=== PATIENT | female | born 1980 | race Caucasian/White ===

== ENCOUNTER 2022-03-26 20:48 | Emergency (ER) | payer OTHER | END 2022-03-26 23:26 | disposition left against medical advice (07) | LOC: CSHERS 20:48 | DX: Z53.21 Procedure and treatment not carried out due to patient leaving prior to being seen by health care provider (principal) ==

== ENCOUNTER 2022-03-28 14:51 | Emergency (ER) | payer OTHER ==
[2022-03-28] MEDS ORDERED: Ketorolac Tromethamine 30 MG/ML VIAL ONE ×2 (15:16→15:44)
[2022-03-28 15:32] LABS: #Basophils 0.1 10x3/uL (0.0-0.2); #Eosinphils 0.1 10x3/uL (0.0-0.5); #Monocytes 0.7 10x3/uL (0.0-1.1); #Neutrophils 11.2 10x3/uL (1.5-8.4); %Basophils 0.4 % (0.0-2.0); %Eosinophils 0.7 % (0.0-6.0); %Monocytes 4.9 % (0.0-10.0); %Neutrophils 75.7 % (40.0-75.0); Hemoglobin 14.4 g/dL (12.0-15.5); Mean Corpuscular Hemoglobin 27.9 pg (27.0-33.0); Mean Corpuscular Volume 84.5 fl (81.6-98.3); Mean Platelet Volume 10.2 fl (7.4-10.4); Platelet Count 352 10x3/uL (150-450); RBC Distribution Width 13.6 % (11.5-14.5); Red Blood Cell (RBC) Count 5.16 10x6/uL (3.90-5.03); White Blood Cell (WBC) Count 14.7 10x3/uL (3.5-10.5)
[2022-03-28 15:38] LABS: BHCG - Serum Negative (NEGATIVE); Pregs Control Background? CLEAR/WHITE (CLR/WHITE); Pregs Control Bar Appear? YES (CONTROL BAR)
[2022-03-28] MEDS ORDERED: Iopamidol 300 61% 100 ML VIAL FS ONE (15:48)
[2022-03-28 15:49] LABS: ALT (SGPT) 35 U/L (8-55); AST (SGOT) 25 U/L (5-34); Albumin 4.2 g/dL (3.5-5.0); Alkaline Phosphatase 99 U/L (40-110); Anion Gap 17 mmol/L (10-20); BUN (Urea Nitrogen) 13 mg/dL (7.0-18.7); Bilirubin, Total 0.4 mg/dL (0.2-1.2); Calc. Creatinine Clearance 0 mL/min (70-130); Calcium 9.5 mg/dL (7.8-10.44); Carbon Dioxide 20 mmol/L (22-29); Chloride 105 mmol/L (98-107); Globulin 3.7 g/dL (2.4-3.5); Glucose 128 mg/dL (70-105); Potassium 3.9 mmol/L (3.5-5.1); Protein, Total 7.9 g/dL (6.0-8.3); Sodium 138 mmol/L (136-145)
== END 2022-03-28 17:24 | disposition home or self-care (01) ==
LOC: CSHERS 14:51
DX: K04.7 Periapical abscess without sinus (principal); K03.81 Cracked tooth; K02.9 Dental caries, unspecified; F17.210 Nicotine dependence, cigarettes, uncomplicated
CPT/HCPCS: 70487; 80053; 83605; 84703; 85025; 96365; 96366; 96375; J1885; J3490; Q9967

== ENCOUNTER 2022-06-17 18:46 | Emergency (ER) | payer OTHER ==
[2022-06-17 19:48] LABS: Bilirubin Neg (Negative); Blood, Urine 10 (Negative); Clarity Slightly Cloudy (Clear); Glucose, Urine (Dipstick) Normal (Negative); Ketone, Urine Negative (Negative); Leukocyte 500 (Negative); Nitrite Negative (Negative); Protein, Urine (Dipstick) 30 mg/dl (Neg-Trace); Urobilinogen Normal mg/dL (Less than 2)
[2022-06-17 20:03] LABS: Pregnancy Test - Urine (BHCG) Negative (Negative); Pregu Control Background? CLEAR/WHITE (CLR/WHITE); Pregu Control Bar Appear? YES (CONTROL BAR)
[2022-06-17 20:13] LABS: Bacteria/HPF Rare-Few HPF (None Seen); RBC/HPF None Seen HPF (0-3); Squamous Epithelial 0-3 HPF (0-3); WBC/HPF 21-50 HPF (0-3)
== END 2022-06-17 20:40 | disposition home or self-care (01) ==
LOC: CSHERS 18:46 → EEVIPCON 18:46 → CSHERS 20:40
DX: K04.7 Periapical abscess without sinus (principal); A60.1 Herpesviral infection of perianal skin and rectum
CPT/HCPCS: 81003; 81015; 81025; 99283

== ENCOUNTER 2022-09-25 16:59 | Emergency (ER) | payer OTHER | END 2022-09-25 17:42 | disposition home or self-care (01) | LOC: CSHERS 16:59 | DX: K02.9 Dental caries, unspecified (principal); Z76.0 Encounter for issue of repeat prescription | CPT/HCPCS: 99281 ==

== ENCOUNTER 2023-06-08 14:32 | Emergency (ER) | payer OTHER | END 2023-06-08 16:48 | disposition home or self-care (01) | LOC: CSHERS 14:32 | DX: K02.9 Dental caries, unspecified (principal); F17.210 Nicotine dependence, cigarettes, uncomplicated | CPT/HCPCS: 99282 ==

== ENCOUNTER 2023-07-19 18:06 | Emergency (ER) | payer OTHER ==
[2023-07-19] MEDS ORDERED: Ketorolac Tromethamine 30 MG/ML VIAL ONE (18:40)
== END 2023-07-19 19:23 | disposition home or self-care (01) ==
LOC: CSHERS 18:06
DX: B34.9 Viral infection, unspecified (principal); Z87.891 Personal history of nicotine dependence; Z20.822 Contact with and (suspected) exposure to COVID-19
CPT/HCPCS: 87635; 99283; J1885

== ENCOUNTER 2023-08-13 10:09 | Emergency (ER) | payer OTHER ==
[2023-08-13] MEDS ORDERED: Acetaminophen 500 MG TAB ONE (10:40)
[2023-08-13] MEDS ORDERED: Loratadine 10 MG TAB PO SCH (11:15)
[2023-08-13] MEDS ORDERED: Cetirizine HCl 10 MG TAB PO SCH (11:15)
[2023-08-13 11:42] LABS: SARS-CoV-2 NAA Rapid Test DETECTED (NotDetected)
== END 2023-08-13 12:30 | disposition home or self-care (01) ==
LOC: CSHERS 10:09
DX: U07.1 COVID-19 (principal); Z87.891 Personal history of nicotine dependence
CPT/HCPCS: 71045